=== PATIENT | male | born 1985 | race Caucasian/White ===

== ENCOUNTER 2016-09-21 22:49 | Emergency (ER) | payer OTHER ==
[2016-09-21 22:56] VITALS: BP 132/89; PULSE 78; RESP 18; TEMP 97.9
--- NOTE | 2016-09-21 23:38 | ED ---
General Adult HPI - General Chief complaint: Extremity Problem,Nontraumatic Stated complaint: Leg Pain Time Seen by Provider: 09/21/16 23:22 Source: patient, family, RN notes reviewed Mode of arrival: ambulatory Limitations: no limitations - History of Present Illness Initial comments: Patient is a pleasant 30-year-old male presenting to the emergency Department with right leg redness. Patient states symptoms have been present for a couple of days. Patient was seen at urgent care 2 days ago and started on Augmentin. Symptoms have worsened somewhat since that time. Patient has had subjective fevers for 2 days. Patient did take Tylenol earlier. Patient does complain of mild discomfort. 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 Patient had a family member who does similar work with similar infection previously. - Related Data Home Medications Medication Instructions Recorded Confirmed Acetaminophen Tab [Tylenol Tab] 1,000 mg PO Q6HR PRN 09/21/16 09/21/16 Amoxic-Pot Clav 875-125Mg 1 tab PO Q12HR 09/21/16 09/21/16 [Augmentin 875-125] Previous Rx's Medication Instructions Recorded Sulfamethox-Tmp 800-160Mg [Bactrim 2 each PO Q12HR #40 tab 09/21/16 DS 800-160 mg] Allergies Allergy/AdvReac Type Severity Reaction Status Date / Time No Known Allergies Allergy Verified 09/21/16 23:04 Review of Systems ROS Statement: Those systems with pertinent positive or pertinent negative responses have been documented in the HPI. ROS Other: All systems not noted in ROS Statement are negative. Constitutional: Reports: fever, chills Eyes: Denies: eye pain ENT: Denies: ear pain Respiratory: Denies: cough Cardiovascular: Denies: chest pain Endocrine: Denies: fatigue Gastrointestinal: Denies: abdominal pain Genitourinary: Denies: dysuria Musculoskeletal: Denies: back pain Skin: Reports: rash Neurological: Denies: weakness Past Medical History Past Medical History: No Reported History History of Any Multi-Drug Resistant Organisms: None Reported Past Surgical History: Appendectomy Past Psychological History: No Psychological Hx Reported Smoking Status: Current every day smoker Past Alcohol Use History: Occasional Past Drug Use History: None Reported General Exam Limitations: no limitations General appearance: alert, in no apparent distress Head exam: Present: atraumatic Eye exam: Present: normal appearance, PERRL ENT exam: Present: normal oropharynx Neck exam: Present: normal inspection Respiratory exam: Present: normal lung sounds bilaterally Cardiovascular Exam: Present: regular rate, normal rhythm Expanded Peripheral pulses: 2+: Posterior Tibialis (R), Dorsalis Pedis (R) GI/Abdominal exam: Present: soft. Absent: tenderness Extremities exam: Present: other (Right anterior mcgrath with erythema. Minimal tenderness. Central area of skin breakdown both bilateral shins.). Absent: pedal edema, calf tenderness Neurological exam: Present: alert Psychiatric exam: Present: normal affect, normal mood Skin exam: Present: rash (Erythema right anterior mcgrath) Course Vital Signs 09/21/16 22:53 Temperature 97.9 F Pulse Rate 78 Respiratory 18 Rate Blood Pressure 132/89 O2 Sat by Pulse 99 Oximetry - Reevaluation(s) Reevaluation #1: 09/21/16 23:36 Patient does not feel he needs to be hospitalized. Patient is recommended to continue antibiotics tonight and in the morning. Patient is advised of symptoms do worsen to change antibiotics tomorrow. Patient is advised if symptoms continue to worsen or fevers or fatigue or other concerns to return for IV antibiotics. 09/21/16 23:36 Involved area was outlined Disposition Clinical Impression: Cellulitis of right lower leg Disposition: HOME SELF-CARE Condition: Stable Instructions: Cellulitis (ED) Additional Instructions: Tylenol or Motrin [id number] as needed. Avoid trauma to the involved area. Return for increased redness, swelling, increased pain, fevers, worsening symptoms or other concerns. If symptoms worsen he may need IV antibiotics. Prescriptions: Sulfamethox-Tmp 800-160Mg [Bactrim DS 800-160 mg] 2 each PO Q12HR #40 tab Referrals: Azalea Rajput III, MD [STAFF PHYSICIAN] - 1-2 days Dior Adams DO [REFERRING] - 1-2 days Time of Disposition: 23:38
== END 2016-09-21 23:43 | disposition home or self-care (01) ==
LOC: EC 22:49
DX: L03.115 Cellulitis of right lower limb (principal); F17.200 Nicotine dependence, unspecified, uncomplicated
CPT/HCPCS: 99283

== ENCOUNTER → 2017-04-17 | Outpatient (CLI) | payer BC, OTHER ==
--- NOTE | 2017-04-18 11:51 | ECHOF ---
Referral Reason:R07.9 Chest Pain MEASUREMENTS -------- HEIGHT: 175.3 cm WEIGHT: 81.6 kg BP: IVSd: 1.2 cm (0.6 - 1.1) LVIDd: 5.0 cm (3.9 - 5.3) LVPWd: 0.9 cm (0.6 - 1.1) IVSs: 1.6 cm LVIDs: 3.0 cm LVPWs: 1.2 cm LA Diam: 2.9 cm (2.7 - 3.8) LAESV Index (A-L): 20.39 ml/m Ao Diam: 3.1 cm (2.0 - 3.7) AV Cusp: 2.2 cm (1.5 - 2.6) LA Diam: 3.3 cm (2.7 - 3.8) MV EXCURSION: 21.866 mm (> 18.000) MV EF SLOPE: 99 mm/s (70 - 150) EPSS: 0.7 cm MV E Ellis: 0.57 m/s MV DecT: 201 ms MV A Ellis: 0.63 m/s MV E/A Ratio: 0.92 RAP: 5.00 mmHg RVSP: 14.01 mmHg FINDINGS -------- Sinus rhythm. This was a technically good study. The left ventricular size is normal. There is borderline concentric left ventricular hypertrophy. Overall left ventricular systolic function is normal with, an EF between 60 - 65 %. The right ventricle is normal in size. The right atrial size is normal. The aortic valve is trileaflet, and appears structurally normal. No aortic stenosis or regurgitation. Mild mitral regurgitation is present. Mild tricuspid regurgitation present. There is no evidence of pulmonary hypertension. The right v entricular systolic pressure, as measured by Doppler, is 14.01mmHg. Trace/mild (physiologic) pulmonic regurgitation. The aortic root size is normal. There is no pericardial effusion. CONCLUSIONS -------- 1. The left ventricular size is normal. 2. There is borderline concentric left ventricular hypertrophy. 3. Overall left ventricular systolic function is normal with, an EF between 60 - 65 %. 4. The aortic valve is trileaflet, and appears structurally normal. No aortic stenosis or regurgitati on. 5. Mild mitral regurgitation is present. 6. Mild tricuspid regurgitation present. 7. There is no evidence of pulmonary hypertension. 8. The right ventricular systolic pressure, as measured by Doppler, is 14.01mmHg. 9. Trace/mild (physiologic) pulmonic regurgitation. 10. The aortic root size is normal. 11. There is no pericardial effusion. FIRST AID NURSE: Bev Patricio RDCS
== END | disposition home or self-care (01) ==
LOC: RADECHMAIN 13:15
PROVIDERS: ATTEND Nurse Practitioner Adult Health
DX: I08.1 Rheumatic disorders of both mitral and tricuspid valves (principal); I51.7 Cardiomegaly
CPT/HCPCS: 93306

== ENCOUNTER 2017-04-18 08:04 | Emergency (ER) | payer BC ==
[2017-04-18 08:44] VITALS: RESP 16
--- NOTE | 2017-04-18 09:32 | XR ---
EXAMINATION TYPE: XR chest 2V DATE OF EXAM: 04/18/2017 COMPARISON: None HISTORY: 31 year-old male chest pain TECHNIQUE: PA and lateral views FINDINGS: The cardiomediastinal silhouette, aorta, and pulmonary vasculature are within normal limits. Lungs an d pleural spaces are clear. IMPRESSION: No acute cardiopulmonary process.
[2017-04-18 09:51] LABS: Basophils % (A) 0 %; Eosinophils # (A) 0.1 k/uL (0-0.7); Eosinophils % (A) 1 %; HCT 51.1 % (39.0-53.0); HGB 16.5 gm/dL (13.0-17.5); Lymphocytes % (A) 16 %; MCH 30.3 pg (25.0-35.0); MCHC 32.2 g/dL (31.0-37.0); MCV 94.3 fL (80.0-100.0); Mean Platelet Volume 8.1; Monocytes # (A) 0.3 k/uL (0-1.0); Monocytes % (A) 6 %; Neutrophils # (A) 4.5 k/uL (1.3-7.7); Neutrophils % (A) 75 %; Platelet Count 225 k/uL (150-450); RBC 5.43 m/uL (4.30-5.90); RDW 12.2 % (11.5-15.5); WBC 5.9 k/uL (3.8-10.6)
[2017-04-18 10:08] LABS: ALT 35 U/L (21-72); AST 38 U/L (17-59); Alkaline Phosphatase 93 U/L (38-126); Anion Gap 12 mmol/L; Blood Urea Nitrogen 8 mg/dL (9-20); Calcium 10.1 mg/dL (8.4-10.2); Carbon Dioxide 24 mmol/L (22-30); Chloride 101 mmol/L (98-107); Glucose 104 mg/dL (74-99); Sodium 137 mmol/L (137-145); Total Bilirubin 0.8 mg/dL (0.2-1.3); Total Protein 8.3 g/dL (6.3-8.2)
--- NOTE | 2017-04-18 10:33 | ED ---
General Adult HPI - General Chief complaint: Recheck/Abnormal Lab/Rx Stated complaint: hot and cold Time Seen by Provider: 04/18/17 08:33 Source: patient, RN notes reviewed Mode of arrival: ambulatory Limitations: no limitations - History of Present Illness Initial comments: 31-year-old male with no significant past medical history presents for evaluation of dry cough and subjective fever and chills. Patient was evaluated by his primary care physician yesterday, complete workup including laboratory studies, EKG, and echocardiogram was obtained. According to the patient was workup was negative. Throughout the evening he's had persistent dry cough. And hot and cold flashes. He was prescribed albuterol for his cough. He has had some nasal congestion and mild sore throat as well. The symptoms have been present for the past several days. - Related Data Home Medications Medication Instructions Recorded Confirmed Albuterol Sulfate [Proair Hfa] 1 - 2 puff INHALATION RT-QID PRN 04/18/17 Omeprazole [PriLOSEC] 40 mg PO DAILY 04/18/17 04/18/17 Previous Rx's Medication Instructions Recorded Loratadine [Claritin] 10 mg PO DAILY #30 tab 04/18/17 Allergies Allergy/AdvReac Type Severity Reaction Status Date / Time No Known Allergies Allergy Verified 04/18/17 08:53 Review of Systems ROS Statement: Those systems with pertinent positive or pertinent negative responses have been documented in the HPI. ROS Other: All systems not noted in ROS Statement are negative. Past Medical History Past Medical History: No Reported History Additional Past Medical History / Comment(s): gerd History of Any Multi-Drug Resistant Organisms: None Reported Past Surgical History: Appendectomy Past Psychological History: No Psychological Hx Reported Smoking Status: Former smoker Past Alcohol Use History: Rare Past Drug Use History: None Reported General Exam Limitations: no limitations General appearance: alert, in no apparent distress Head exam: Present: atraumatic, normocephalic Eye exam: Present: normal appearance, PERRL ENT exam: Absent: normal oropharynx (Mild pharyngeal erythema with cobblestoning , no exudate or tonsillar swelling) Neck exam: Present: normal inspection. Absent: tenderness, meningismus Respiratory exam: Present: normal lung sounds bilaterally. Absent: respiratory distress, wheezes, rales Cardiovascular Exam: Present: regular rate, normal rhythm GI/Abdominal exam: Present: soft. Absent: distended, tenderness Extremities exam: Present: normal inspection, full ROM, normal capillary refill. Absent: pedal edema Neurological exam: Present: alert, oriented X3, CN II-XII intact. Absent: motor sensory deficit Skin exam: Present: warm, dry, intact. Absent: cyanosis, diaphoretic Course Vital Signs 04/18/17 04/18/17 08:17 08:43 Temperature 98.0 F Pulse Rate 87 107 H Respiratory 18 16 Rate Blood Pressure 150/96 158/96 O2 Sat by Pulse 100 97 Oximetry EKG Findings - EKG Comments: EKG Findings:: EKG shows normal sinus rhythm, ventricular rate 78, CT 150, qrs 88, QTC 426, no signs of ischemia or infarction Medical Decision Making - Medical Decision Making 31-year-old male presenting with cough. Patient is concerned about these symptoms, was seen by his primary care physician. Laboratory studies were not able to be visualized so they were repeated, CBC shows normal white blood cell count, stable he will, normal x-rays. Troponin is negative, d-dimer negative, BNP negative, influenza negative, chest x-ray negative for focal pneumonia. Patient does have cobblestoning of the posterior oropharynx, this may be related to postnasal drip. He is prescribed Claritin. He will follow-up with his primary care physician. - Lab Data Result diagrams: 04/18/17 09:30 04/18/17 09:30 Lab Results 04/18/17 04/18/17 04/18/17 Range/Units 09:30 09:30 09:30 WBC 5.9 (3.8-10.6) k/uL RBC 5.43 (4.30-5.90) m/uL Hgb 16.5 (13.0-17.5) gm/dL Hct 51.1 (39.0-53.0) % MCV 94.3 (80.0-100.0) fL MCH 30.3 (25.0-35.0) pg MCHC 32.2 (31.0-37.0) g/dL RDW 12.2 (11.5-15.5) % Plt Count 225 (150-450) k/uL Neutrophils % 75 % Lymphocytes % 16 % Monocytes % 6 % Eosinophils % 1 % Basophils % 0 % Neutrophils # 4.5 (1.3-7.7) k/uL Lymphocytes # 1.0 (1.0-4.8) k/uL Monocytes # 0.3 (0-1.0) k/uL Eosinophils # 0.1 (0-0.7) k/uL Basophils # 0.0 (0-0.2) k/uL D-Dimer (<0.60) mg/L FEU Sodium 137 (137-145) mmol/L Potassium 5.0 (3.5-5.1) mmol/L Chloride 101 (98-107) mmol/L Carbon Dioxide 24 (22-30) mmol/L Anion Gap 12 mmol/L BUN 8 L (9-20) mg/dL Creatinine 0.74 (0.66-1.25) mg/dL Est GFR (MDRD) Af Amer >60 (>60 ml/min/1.73 sqM) Est GFR (MDRD) Non-Af >60 (>60 ml/min/1.73 sqM) Glucose 104 H (74-99) mg/dL Calcium 10.1 (8.4-10.2) mg/dL Total Bilirubin 0.8 (0.2-1.3) mg/dL AST 38 (17-59) U/L ALT 35 (21-72) U/L Alkaline Phosphatase 93 (38-126) U/L Troponin I (0.000-0.034) ng/mL NT-Pro-B Natriuret Pep pg/mL Total Protein 8.3 H (6.3-8.2) g/dL Albumin 5.0 (3.5-5.0) g/dL Influenza Type A RNA Not Detected (Not Detectd) Influenza Type B (PCR) Not Detected (Not Detectd) 04/18/17 04/18/17 04/18/17 Range/Units 09:30 09:30 09:30 WBC (3.8-10.6) k/uL RBC (4.30-5.90) m/uL Hgb (13.0-17.5) gm/dL Hct (39.0-53.0) % MCV (80.0-100.0) fL MCH (25.0-35.0) pg MCHC (31.0-37.0) g/dL RDW (11.5-15.5) % Plt Count (150-450) k/uL Neutrophils % % Lymphocytes % % Monocytes % % Eosinophils % % Basophils % % Neutrophils # (1.3-7.7) k/uL Lymphocytes # (1.0-4.8) k/uL Monocytes # (0-1.0) k/uL Eosinophils # (0-0.7) k/uL Basophils # (0-0.2) k/uL D-Dimer <0.17 (<0.60) mg/L FEU Sodium (137-145) mmol/L Potassium (3.5-5.1) mmol/L Chloride (98-107) mmol/L Carbon Dioxide (22-30) mmol/L Anion Gap mmol/L BUN (9-20) mg/dL Creatinine (0.66-1.25) mg/dL Est GFR (MDRD) Af Amer (>60 ml/min/1.73 sqM) Est GFR (MDRD) Non-Af (>60 ml/min/1.73 sqM) Glucose (74-99) mg/dL Calcium (8.4-10.2) mg/dL Total Bilirubin (0.2-1.3) mg/dL AST (17-59) U/L ALT (21-72) U/L Alkaline Phosphatase (38-126) U/L Troponin I <0.012 (0.000-0.034) ng/mL NT-Pro-B Natriuret Pep 13 pg/mL Total Protein (6.3-8.2) g/dL Albumin (3.5-5.0) g/dL Influenza Type A RNA (Not Detectd) Influenza Type B (PCR) (Not Detectd) Disposition Clinical Impression: Postnasal drip, Bronchitis Disposition: HOME SELF-CARE Condition: Good Instructions: Acute Bronchitis (ED) Prescriptions: Loratadine [Claritin] 10 mg PO DAILY #30 tab Referrals: Franck Stringer MD [Primary Care Provider] - 1-2 days Time of Disposition: 11:12
[2017-04-18 11:42] VITALS: BP 150/100; PULSE 78; TEMP 98
== END 2017-04-18 11:25 | disposition home or self-care (01) ==
LOC: EC 08:04
DX: J40 Bronchitis, not specified as acute or chronic (principal); R09.82 Postnasal drip; K21.9 Gastro-esophageal reflux disease without esophagitis; Z87.891 Personal history of nicotine dependence; Z79.899 Other long term (current) drug therapy
CPT/HCPCS: 36415; 71046; 80053; 83880; 84484; 85025; 85379; 87502; 93005; 99284

== ENCOUNTER 2017-05-03 07:57 | Emergency (ER) | payer BC ==
[2017-05-03 08:02] VITALS: TEMP 97
[2017-05-03] MEDS ORDERED: ASPIRIN 81 MG PO STA (08:27)
[2017-05-03] MEDS ORDERED: SODIUM CHLORIDE 0.9% 500 ML IV STA (08:27)
--- NOTE | 2017-05-03 08:40 | ED ---
General Adult HPI - General Source: patient, RN notes reviewed Mode of arrival: ambulatory Limitations: no limitations <Denise Johnson - Last Filed: 05/03/17 09:52> <Rachid Gonzalez - Last Filed: 05/03/17 09:59> - General Chief complaint: Chest Pain Stated complaint: CHEST PAIN, HYPERTENSION Time Seen by Provider: 05/03/17 08:11 - History of Present Illness Initial comments: 31-year-old male presents emergency department with a chief complaint of left- sided chest pain. He states that this pain started on and off for the past 2-3 days. He states that movement seems to make the pain go away but if he sits still the pain occurs. He states it is like a tightness type pain. He states that there is been no shortness of breath no nausea no vomiting with it. It extends up into the left shoulder. He does admit to history of high blood pressure. He states his dad had a heart attack age 48. He was concerned due to his continued pain so he thought that he should be evaluated. Patient denies any recent fever, chills, shortness of breath, back pain, abdominal pain, nausea vomiting, numbness or tingling, dysuria or hematuria, constipation or diarrhea, headaches or visual changes, or any other current symptoms. (Denise Johnson) - Related Data Home Medications Medication Instructions Recorded Confirmed Omeprazole [PriLOSEC] 40 mg PO DAILY 04/18/17 05/03/17 Hydrochlorothiazide [Hydrodiuril] 25 mg PO DAILY 05/03/17 05/03/17 Lisinopril [Zestril] 10 mg PO DAILY 05/03/17 05/03/17 Allergies Allergy/AdvReac Type Severity Reaction Status Date / Time No Known Allergies Allergy Verified 05/03/17 08:10 Review of Systems ROS Other: All systems not noted in ROS Statement are negative. <Denise Johnson - Last Filed: 05/03/17 09:52> ROS Other: All systems not noted in ROS Statement are negative. <Rachid Gonzalez - Last Filed: 05/03/17 09:59> ROS Statement: Those systems with pertinent positive or pertinent negative responses have been documented in the HPI. Past Medical History Past Medical History: GERD/Reflux, Hypertension Additional Past Medical History / Comment(s): gerd History of Any Multi-Drug Resistant Organisms: None Reported Past Surgical History: Appendectomy Past Psychological History: No Psychological Hx Reported Smoking Status: Light tobacco smoker Past Alcohol Use History: Occasional Past Drug Use History: None Reported <Denise Johnson - Last Filed: 05/03/17 09:52> General Exam Limitations: no limitations <Denise Johnson - Last Filed: 05/03/17 09:52> <Rachid Gonzalez - Last Filed: 05/03/17 09:59> - General Exam Comments Initial Comments: General: The patient is awake and alert, in no distress, and does not appear acutely ill. Eye: Pupils are equal, round and reactive to light, extra-ocular movements are intact; there is normal conjunctiva bilaterally. No signs of icterus. Ears, nose, mouth and throat: There are moist mucous membranes and no oral lesions. Neck: The neck is supple, there is no tenderness. Cardiovascular: There is a regular rate and rhythm. No murmur, rub or gallop is appreciated. Respiratory: Lungs are clear to auscultation, respirations are non-labored, breath sounds are equal. No wheezes, stridor, rales, or rhonchi. Tenderness over the left lateral chest wall Gastrointestinal: Soft, non-distended, non-tender abdomen without masses or organomegaly noted. There is no rebound or guarding present. No CVA tenderness. Bowel sounds are unremarkable. Back: There is no tenderness to palpation in the midline. There is some tenderness of the left upper thoracic paraspinal region There is no obvious deformity. No rashes noted. Musculoskeletal: Normal ROM, no tenderness, There is no pedal edema. There is no calf tenderness or swelling. Sensation intact. Pulses equal bilaterally 2+. Neurological: CN II-XII intact, There are no obvious motor or sensory deficits. Coordination appears grossly intact. Speech is normal. Skin: Skin is warm and dry and no rashes or lesions are noted. Psychiatric: Cooperative, appropriate mood & affect, normal judgment. (Denise Johnson) Course <Denise Johnson - Last Filed: 05/03/17 09:52> <Rachid Gonzalez - Last Filed: 05/03/17 09:59> Vital Signs 05/03/17 05/03/17 08:00 09:09 Temperature 97.0 F L Pulse Rate 96 99 Respiratory 18 16 Rate Blood Pressure 157/100 125/84 O2 Sat by Pulse 99 99 Oximetry - Reevaluation(s) Reevaluation #1: 05/03/17 09:58 I did personally do a [id number] evaluation the patient and did examine him and discussed the findings with him. Patient does have reproducible tenderness palpation along the left upper costochondral margin and pectoralis muscle also tenderness palpation over the left paraspinous muscles no mid spine tenderness or right-sided tenderness. This does appear to be consistent with musculoskeletal etiology of the discomfort. Patient does have a stress test already scheduled with his doctor we did discuss smoking cessation and risks factors. At this time I believe the patient is in satisfactory condition for discharge. He will follow-up with his doctor and return when necessary (Rachid Gonzalez) EKG Findings - EKG Comments: EKG Findings:: normal sinus rhythm 78 bpm, normal axis, no atopy, no S-T depressions or elevations, <Denise Johnson - Last Filed: 05/03/17 09:52> Medical Decision Making - Lab Data Result diagrams: 05/03/17 08:13 05/03/17 08:13 - Radiology Data Radiology results: report reviewed, image reviewed <Denise Johnson - Last Filed: 05/03/17 09:52> - Lab Data Result diagrams: 05/03/17 08:13 05/03/17 08:13 <Rachid Gonzalez - Last Filed: 05/03/17 09:59> - Medical Decision Making 31-year-old male presents for left-sided chest pain. That is reproducible to touch. This time or suspicious for costochondritis. He has been having this pain for about 2-3 days now with a negative troponin and EKG is normal. At this time we did discuss that he needs to follow-up with his doctor he does have an outpatient stress test scheduled. We discussed return parameters all questions. Patient stated he understood and he is agreement this plan. He will be discharged. (Denise Johnson) - Lab Data Lab Results 05/03/17 05/03/17 05/03/17 Range/Units 08:13 08:13 08:13 WBC 6.1 (3.8-10.6) k/uL RBC 5.43 (4.30-5.90) m/uL Hgb 16.5 (13.0-17.5) gm/dL Hct 47.4 (39.0-53.0) % MCV 87.3 D (80.0-100.0) fL MCH 30.4 (25.0-35.0) pg MCHC 34.8 (31.0-37.0) g/dL RDW 12.3 (11.5-15.5) % Plt Count 233 (150-450) k/uL Neutrophils % 57 % Lymphocytes % 30 % Monocytes % 7 % Eosinophils % 2 % Basophils % 1 % Neutrophils # 3.4 (1.3-7.7) k/uL Lymphocytes # 1.8 (1.0-4.8) k/uL Monocytes # 0.4 (0-1.0) k/uL Eosinophils # 0.1 (0-0.7) k/uL Basophils # 0.0 (0-0.2) k/uL PT (9.0-12.0) sec INR (<1.2) APTT (22.0-30.0) sec Sodium 137 (137-145) mmol/L Potassium 4.0 (3.5-5.1) mmol/L Chloride 97 L (98-107) mmol/L Carbon Dioxide 29 (22-30) mmol/L Anion Gap 11 mmol/L BUN 8 L (9-20) mg/dL Creatinine 0.64 L (0.66-1.25) mg/dL Est GFR (CKD-EPI)AfAm >90 (>60 ml/min/1.73 sqM) Est GFR (CKD-EPI)NonAf >90 (>60 ml/min/1.73 sqM) Glucose 97 (74-99) mg/dL Calcium 9.5 (8.4-10.2) mg/dL Magnesium 2.0 (1.6-2.3) mg/dL Total Bilirubin 0.3 (0.2-1.3) mg/dL AST 39 (17-59) U/L ALT 46 (21-72) U/L Alkaline Phosphatase 98 (38-126) U/L Total Creatine Kinase 90 (55-170) U/L CK-MB (CK-2) 0.5 (0.0-2.4) ng/mL CK-MB (CK-2) Rel Index 0.6 Troponin I <0.012 (0.000-0.034) ng/mL Total Protein 7.5 (6.3-8.2) g/dL Albumin 4.6 (3.5-5.0) g/dL Amylase 53 (30-110) U/L Lipase 120 (23-300) U/L Urine Color Urine Appearance (Clear) Urine pH (5.0-8.0) Ur Specific [place] (1.001-1.035) Urine Protein (Negative) Urine Glucose (UA) (Negative) Urine Ketones (Negative) Urine Blood (Negative) Urine Nitrite (Negative) Urine Bilirubin (Negative) Urine Urobilinogen (<2.0) mg/dL Ur Leukocyte Esterase (Negative) Urine Opiates Screen (NotDetected) Ur Oxycodone Screen (NotDetected) Urine Methadone Screen (NotDetected) Ur Propoxyphene Screen (NotDetected) Ur Barbiturates Screen (NotDetected) U Tricyclic Antidepress (NotDetected) Ur Phencyclidine Scrn (NotDetected) Ur Amphetamines Screen (NotDetected) U Methamphetamines Scrn (NotDetected) U Benzodiazepines Scrn (NotDetected) Urine Cocaine Screen (NotDetected) U Marijuana (THC) Screen (NotDetected) 05/03/17 05/03/17 Range/Units 08:13 08:36 WBC (3.8-10.6) k/uL RBC (4.30-5.90) m/uL Hgb (13.0-17.5) gm/dL Hct (39.0-53.0) % MCV (80.0-100.0) fL MCH (25.0-35.0) pg MCHC (31.0-37.0) g/dL RDW (11.5-15.5) % Plt Count (150-450) k/uL Neutrophils % % Lymphocytes % % Monocytes % % Eosinophils % % Basophils % % Neutrophils # (1.3-7.7) k/uL Lymphocytes # (1.0-4.8) k/uL Monocytes # (0-1.0) k/uL Eosinophils # (0-0.7) k/uL Basophils # (0-0.2) k/uL PT 10.5 (9.0-12.0) sec INR 1.1 (<1.2) APTT 26.4 (22.0-30.0) sec Sodium (137-145) mmol/L Potassium (3.5-5.1) mmol/L Chloride (98-107) mmol/L Carbon Dioxide (22-30) mmol/L Anion Gap mmol/L BUN (9-20) mg/dL Creatinine (0.66-1.25) mg/dL Est GFR (CKD-EPI)AfAm (>60 ml/min/1.73 sqM) Est GFR (CKD-EPI)NonAf (>60 ml/min/1.73 sqM) Glucose (74-99) mg/dL Calcium (8.4-10.2) mg/dL Magnesium (1.6-2.3) mg/dL Total Bilirubin (0.2-1.3) mg/dL AST (17-59) U/L ALT (21-72) U/L Alkaline Phosphatase (38-126) U/L Total Creatine Kinase (55-170) U/L CK-MB (CK-2) (0.0-2.4) ng/mL CK-MB (CK-2) Rel Index Troponin I (0.000-0.034) ng/mL Total Protein (6.3-8.2) g/dL Albumin (3.5-5.0) g/dL Amylase (30-110) U/L Lipase (23-300) U/L Urine Color Light Yellow Urine Appearance Clear (Clear) Urine pH 7.0 (5.0-8.0) Ur Specific [place] 1.004 (1.001-1.035) Urine Protein Negative (Negative) Urine Glucose (UA) Negative (Negative) Urine Ketones Negative (Negative) Urine Blood Negative (Negative) Urine Nitrite Negative (Negative) Urine Bilirubin Negative (Negative) Urine Urobilinogen <2.0 (<2.0) mg/dL Ur Leukocyte Esterase Negative (Negative) Urine Opiates Screen Not Detected (NotDetected) Ur Oxycodone Screen Not Detected (NotDetected) Urine Methadone Screen Not Detected (NotDetected) Ur Propoxyphene Screen Not Detected (NotDetected) Ur Barbiturates Screen Not Detected (NotDetected) U Tricyclic Antidepress Not Detected (NotDetected) Ur Phencyclidine Scrn Not Detected (NotDetected) Ur Amphetamines Screen Not Detected (NotDetected) U Methamphetamines Scrn Not Detected (NotDetected) U Benzodiazepines Scrn Not Detected (NotDetected) Urine Cocaine Screen Not Detected (NotDetected) U Marijuana (THC) Screen Not Detected (NotDetected) Disposition Time of Disposition: 09:53 <Denise Johnson - Last Filed: 05/03/17 09:52> <Rachid Gonzalez - Last Filed: 05/03/17 09:59> Clinical Impression: Costochondral chest pain Disposition: HOME SELF-CARE Condition: Stable Instructions: Costochondritis (ED) Additional Instructions: Please use medication as discussed. Please follow up with family doctor if symptoms have not improved over the next two days. Please return to the emergency room if your symptoms increase or worsen or for any other concerns. Referrals: Franck Stringer MD [Primary Care Provider] - 1-2 days
[2017-05-03 08:43] LABS: Basophils % (A) 1 %; Eosinophils # (A) 0.1 k/uL (0-0.7); Eosinophils % (A) 2 %; HCT 47.4 % (39.0-53.0); HGB 16.5 gm/dL (13.0-17.5); Lymphocytes # (A) 1.8 k/uL (1.0-4.8); Lymphocytes % (A) 30 %; MCH 30.4 pg (25.0-35.0); MCHC 34.8 g/dL (31.0-37.0); Monocytes # (A) 0.4 k/uL (0-1.0); Monocytes % (A) 7 %; Neutrophils # (A) 3.4 k/uL (1.3-7.7); Neutrophils % (A) 57 %; Platelet Count 233 k/uL (150-450); RBC 5.43 m/uL (4.30-5.90); RDW 12.3 % (11.5-15.5); WBC 6.1 k/uL (3.8-10.6)
[2017-05-03 08:50] LABS: INR 1.1 (<1.2); Partial Thromboplastin Time 26.4 sec (22.0-30.0); Prothrombin Time 10.5 sec (9.0-12.0)
[2017-05-03 08:54] LABS: MCV 87.3 fL (80.0-100.0)
[2017-05-03 08:55] LABS: ALT 46 U/L (21-72); AST 39 U/L (17-59); Albumin 4.6 g/dL (3.5-5.0); Alkaline Phosphatase 98 U/L (38-126); Amylase 53 U/L (30-110); Anion Gap 11 mmol/L; Blood Urea Nitrogen 8 mg/dL (9-20); Calcium 9.5 mg/dL (8.4-10.2); Carbon Dioxide 29 mmol/L (22-30); Chloride 97 mmol/L (98-107); Glucose 97 mg/dL (74-99); Lipase 120 U/L (23-300); Sodium 137 mmol/L (137-145); Total Bilirubin 0.3 mg/dL (0.2-1.3); Total Protein 7.5 g/dL (6.3-8.2)
[2017-05-03 09:03] LABS: Creatine Kinase 90 U/L (55-170)
[2017-05-03 09:04] LABS: Appearance,Urine Clear (Clear); Bilirubin,Urine Negative (Negative); Blood,Urine Negative (Negative); Color,Urine Light Yellow; Glucose,Urine (UA) Negative (Negative); Ketones,Urine Negative (Negative); Leukocyte Esterase,Urine Negative (Negative); Protein,Urine Negative (Negative); Specific Gravity,Urine 1.004 (1.001-1.035); Urobilinogen,Urine <2.0 mg/dL (<2.0)
[2017-05-03 09:10] VITALS: RESP 16
[2017-05-03 09:14] LABS: Amphetamine Screen,Urine Not Detected (NotDetected); Barbiturate Screen,Urine Not Detected (NotDetected); Benzodiazepines Screen,Urine Not Detected (NotDetected); Cocaine Screen,Urine Not Detected (NotDetected); Methadone Screen, Urine Not Detected (NotDetected); Opiate Screen,Urine Not Detected (NotDetected); Oxycodone Screen, Urine Not Detected (NotDetected); Phencyclidine Screen,Urine Not Detected (NotDetected); Tricyclic Antidepressant,Urine Not Detected (NotDetected); Urn Cannabinoid Scrn Not Detected (NotDetected)
[2017-05-03 09:16] LABS: Creatine Kinase MB 0.5 ng/mL (0.0-2.4); Troponin I <0.012 ng/mL (0.000-0.034)
--- NOTE | 2017-05-03 09:19 | XR ---
EXAMINATION TYPE: XR chest 2V DATE OF EXAM: 05/03/2017 COMPARISON: 04/18/2017 INDICATION: Chest pain left side TECHNIQUE: Frontal and lateral views of the chest are obtained. FINDINGS: The heart size is normal. The pulmonary vasculature is normal. The lungs are clear. IMPRESSION: 1. No acute pulmonary process.
[2017-05-03 10:12] VITALS: BP 132/79; PULSE 90
== END 2017-05-03 10:12 | disposition home or self-care (01) ==
LOC: EC 07:57
DX: R07.89 Other chest pain (principal); K21.9 Gastro-esophageal reflux disease without esophagitis; I10 Essential (primary) hypertension; F17.200 Nicotine dependence, unspecified, uncomplicated; Z79.899 Other long term (current) drug therapy; Z82.49 Family history of ischemic heart disease and other diseases of the circulatory system
CPT/HCPCS: 36415; 71046; 80053; 80306; 81003; 82150; 82550; 82553; 83690; 83735; 84484; 85025; 85610; 85730; 93005; 96360; 99285

== ENCOUNTER → 2017-05-28 | Outpatient (CLI) | payer BC ==
--- NOTE | 2017-05-29 13:23 | EST ---
EXERCISE STRESS DATE OF SERVICE: 05/28/2017 AGE: 31 SEX: Male HT: 69 WT: 170 PROTOCOL: Beni STAGE: III DURATION OF EXERCISE: 11:32 HEART RATE REST: 116 BLOOD PRESSURE REST: 144/93 MAXIMUM HEART RATE ACHIEVED: 168 MAXIMUM BLOOD PRESSURE: 157/82 85% MPHR: 160 100% MPHR: 188 METS: 12.1 INDICATIONS: Hypertension. CLINICAL INFORMATION: History of hypertension, referred by Dr. Stringer. Baseline heart rate 116 beats per minute. Baseline blood pressure 144/93 mmHg. Baseline 12-lead ECG shows sinus tachycardia with normal ST segments with subtle early repolarization abnormality, normal variant. The patient exercised on Beni protocol for 11 minutes 32 seconds achieving a peak heart rate of 168 beats per minute. Normal blood pressure response to exercise. There was no ECG evidence for ischemia. No arrhythmias were noted. IMPRESSION: exercise capacity. No ECG evidence for ischemia. Sinus tachycardia at baseline. MMODL / IJN: [id number] /
== END | disposition home or self-care (01) ==
LOC: RADNMMAIN 11:09
PROVIDERS: ATTEND Family Medicine
DX: I10 Essential (primary) hypertension (principal); R00.0 Tachycardia, unspecified
CPT/HCPCS: 93017

== ENCOUNTER → 2017-08-09 | Outpatient (CLI) | payer BC ==
--- NOTE | 2017-08-09 09:33 | NM ---
EXAMINATION TYPE: NM hepatobiliary w EF DATE OF EXAM: 08/09/2017 COMPARISON: NONE HISTORY: Right upper quadrant pain TECHNIQUE: After the intravenous administration of 5.32 mCi Tc 99m Mebrofenin hepatobiliary scintigra phy is performed. Immediate images post injection. FINDINGS: There is satisfactory initial accumulation of tracer by the liver. The gallbladder is visualized wit hin 24 minutes. The small bowel activity is noted within 8 minutes. At one hour 8 ounces of oral en sure plus is given to mimic CCK and gallbladder ejection fraction is calculated at 64 %, in the rigoberto l range. Therefore there is no scintigraphic evidence of cystic or common bile duct obstruction to s uggest acute cholecystitis or gallbladder dyskinesia. IMPRESSION: Exam is within normal limits.
== END ==
LOC: RADNMMAIN 06:48
PROVIDERS: ATTEND Family Medicine
DX: R10.11 Right upper quadrant pain (principal)
CPT/HCPCS: 78226; A9537